=== PATIENT | male | born 1975 | race Two or more races ===

== ENCOUNTER 2016-06-19 12:36 | Day surgery (SDC) | payer BC ==
[~2016-06-19] VITALS: Ht 177.8 cm; Wt 57.1 kg
[2016-06-19 13:50] VITALS: Ht 177.8 cm; Wt 57.1 kg
[2016-06-19] MEDS ORDERED: DOCU250C17 PO (14:23)
[2016-06-19] MEDS ORDERED: DIVA500T15 PO (14:23)
[2016-06-19] MEDS ORDERED: VENL50TA2 PO (14:23)
[2016-06-19] MEDS ORDERED: VITA1TAB69 PO (14:23)
[2016-06-19] MEDS ORDERED: QUET400T11 PO (14:23)
[2016-06-19] MEDS ORDERED: CLON0.5T4 PO (14:23)
[2016-06-19] MEDS ORDERED: PROP20TA4 PO (14:23)
[2016-06-19] MEDS ORDERED: LEVO75TA5 PO (14:23)
[2016-06-19] MEDS ORDERED: LIPA1CAP4 PO (14:23)
[2016-06-19 14:46] VITALS: BP 119/78; PULSE 79; RESP 18
[2016-06-19] MEDS ORDERED: PROPOFOL 20 ML ONE ×2 (14:53→15:36)
[2016-06-19] MEDS ORDERED: LIDOCAINE 2% (SDV) 5 ML INJ ONE (14:53)
[2016-06-19] MEDS ORDERED: MIDAZOLAM 1 MG/ML 2 ML INJ ONE (14:53)
[2016-06-19 15:40] VITALS: BP 106/73; PULSE 87; RESP 20
[2016-06-19 15:55] VITALS: BP 100/73; PULSE 80; RESP 24
[2016-06-19 16:20] VITALS: BP 103/55; PULSE 86; RESP 13
--- NOTE | 2016-06-19 19:30 | GILP ---
DATE OF PROCEDURE: NAME OF PROCEDURE: Esophagogastroduodenoscopy with biopsies. SURGEON: Gabo Reno MD. HISTORY AND INDICATIONS: The patient is being evaluated for chronic diarrhea and dyspepsia. PREMEDICATION: Monitored anesthesia care by anesthesiologist. INSTRUMENT USED: Olympus panendoscope. TECHNIQUE: After informed consent, with the patient/relatives understanding the procedure, its indic ations, potential risks, and complications, including but not limited to: allergic reaction, bleedin g, perforation or infection, and, after all pertinent questions were answered to the patient's satis faction, the patient/relatives signed witnessed informed consent. Following this, premedication was administered slowly IV push under careful cardiovascular and respi ratory monitoring with pulse oximetry, automatic blood pressure and cardiac monitor technician. Once the sedative effect was achieved the patient was place in the left lateral decubitus, the panen doscope was introduced and advanced under visual control. Careful examination of the upper gastrointestinal tract, both on insertion as well as withdrawal of the instrument disclosed the following findings: ESOPHAGUS: The mucosa of the entire esophagus appears within normal limits. There is no evidence o f esophagitis, varices, neoplasm, or stricture. No hiatal hernia identified. STOMACH: Upon entrance to the stomach, air was insufflated, the gastric norton distended normally. There is erythema and edema of the mucosa of a moderate degree. Biopsies were obtained to rule out H. pylori infection. There are several small 3 mm polyps in the distal body of the stomach. Biopsi es were obtained for histological examination. PYLORUS: The pylorus appears patent and within normal limits, with no evidence of gastric outlet ob struction. DUODENUM: The duodenal mucosa was carefully examined in the duodenal bulb as well as the second por tion of the duodenum and appears unremarkable with no evidence of duodenitis, ulcer, or neoplasm. The instrument was then withdrawn, the patient tolerated the procedure well and was transfer out of the endoscopy suite awake, and in good condition to continue recovery under observation IMPRESSION: 1. Gastritis, moderate. Rule out Helicobacter pylori infection, biopsies obtained. 2. Small gastric polyps, biopsied. PLAN: The patient will be treated with PPIs, i.e. omeprazole 40 mg daily. Further recommendation w ill depend on the patient's clinical course as well as review of biopsies. Dictated By: GABO RENO MS/RAYMOND Conf#: [id number] DID#: [id number] CC: GABO RENO;*End*
--- NOTE | 2016-06-19 19:32 | GILP ---
DATE OF PROCEDURE: NAME OF PROCEDURE: Colonoscopy with biopsies and ileoscopy or enteroscopy with biopsies. SURGEON: Charly Reno MD HISTORY AND INDICATIONS: The patient is being evaluated for persistent diarrhea. PREMEDICATION: Monitored anesthesia care by anesthesiologist. INSTRUMENT USED: Olympus colonoscope. PREPARATION: Adequate. TECHNIQUE: After informed consent, with the patient/relatives understanding the procedure, its peri cations potential risks and complications, including but not limited to: allergic reaction, bleeding , perforation, infection, missed lesions and after all pertinent questions were answered to the bárbara ent's satisfaction, the patient/relatives signed the witnessed informed consent. Following this, premedication was administered slowly IV push by under careful cardiovascular and re spiratory monitoring with pulse oximetry, automatic blood pressure and formulator compounder. Once the sedativ e effect was achieved, the patient was placed in the left lateral decubitus position, digital rectal examination was performed. The colonoscope was then introduced and advanced under visual control th roughout all segments of the colon including: the rectum, sigmoid, descending colon, splenic flexure , transverse colon, hepatic flexure, ascending colon and finally reaching the cecum which was clearl y identified by transillumination, finger indentation and the ileocecal valve. Careful examination o f the mucosa of the lower gastrointestinal tract both on insertion as well as withdrawal of the inst rument disclosed the following findings: Rectal Examination: No evidence of perirectal disease, no masses. Colonic Mucosa: The colonic mucosa entirely unremarkable throughout. The ileocecal valve was clear ly identified. The terminal ileum was entered. Ileum appears somewhat erythematous and slightly no dular. Biopsies were obtained. Biopsies were obtained randomly in the right and left side of the c olon to rule out microscopic, lymphocytic or collagenous colitis. Moderate-sized internal hemorrhoi ds are noted. The instrument was then withdrawn. The patient tolerated the procedure well and was transferred out of the Endoscopy Suite awake and in good condition to continue recovery under observation. IMPRESSION: 1. Questionable ileitis. Biopsies obtained. 2. Normal colonic mucosa, rule out microscopic, lymphocytic or collagenous colitis. 3. Moderate-sized internal hemorrhoids. PLAN: The patient will follow up as an outpatient. Pathology will be reviewed as soon as available , and further recommendation will depend on patient's clinical course and review of pathology. Dictated By: CHARLY RENO MS/RAYMOND Conf#: [id number] [facility]#: [id number]
== END 2016-06-19 16:22 | disposition home or self-care (01) ==
LOC: GIL 12:36
PROVIDERS: ATTEND Internal Medicine Gastroenterology
DX: K64.8 Other hemorrhoids (principal); K29.60 Other gastritis without bleeding; E03.9 Hypothyroidism, unspecified
CPT/HCPCS: 43239; 45380; 88305; 88312; J2250; Z7610